=== PATIENT | male | born 1980 | race Caucasian/White ===

== ENCOUNTER 2019-12-23 08:45 | Emergency (ER) | payer OTHER ==
[~2019-12-23] VITALS: Ht 185.4 cm; Wt 99.8 kg
[2019-12-23] MEDS ORDERED: OXYC5 PO (11:44)
== END 2019-12-23 11:53 | disposition home or self-care (01) ==
LOC: ER 08:45
DX: S82.841A Displaced bimalleolar fracture of right lower leg, initial encounter for closed fracture (principal); W18.30XA Fall on same level, unspecified, initial encounter
CPT/HCPCS: 27810; 73610; 99152; 99283-25; J2704; J7030

== ENCOUNTER 2019-12-28 07:33 | Day surgery (SDC) | payer OTHER ==
[~2019-12-28] VITALS: Ht 188 cm; Wt 111.3 kg
[~2019-12-28 07:33] MED LIST: OXYC5 PO
--- NOTE | 2019-12-28 10:23 | NUR ---
12/28/19 1023 Geeta Stevens PT IS IN THE RECLINER WITH LEG ELEVATED ON A PILLOW AND ICE BEHIND THE KNEE. VSS. PAIN MEDICATION TX PER DR'S ORDERS. CALL LIGHT IN REACH. PT DENIES NAUSEA.
== END 2019-12-28 10:42 | disposition home or self-care (01) ==
LOC: ORSCSDS 07:33
PROVIDERS: Podiatrist Foot & Ankle Surgery
PROC: 0QSJ04Z Reposition Right Fibula with Internal Fixation Device, Open Approach (ICD-10-PCS; principal; 2019-12-28 09:00)
PROC: 0QSG04Z Reposition Right Tibia with Internal Fixation Device, Open Approach (ICD-10-PCS; principal; 2019-12-28 09:00)
DX: S82.841A Displaced bimalleolar fracture of right lower leg, initial encounter for closed fracture (principal)
CPT/HCPCS: C1713; C1769; J0171; J0690; J1100; J1885; J2250; J2405; J2704; J3010; J7120